=== PATIENT | female | born 1950 | race Caucasian/White ===

== ENCOUNTER 2016-07-23 11:27 | Day surgery (SDC) | payer OTHER ==
[2016-07-20 14:59] VITALS: BMI 27.8
--- NOTE | 2016-07-22 15:10 | HP ---
DATE OF ADMISSION: 07/23/2016 Lynda Johnson is a 66-year-old lady seen with progressive left knee pain. After having treatment options discussed, she elected to proceed with left knee arthroscopy. Consent was obtained. Medical clearance was provided by Dr. Tanner. Past medical history is asthma, hypothyroidism, cardiovascular disease. Past surgical history is appendectomy, coronary artery bypass surgery, bowel resection surgery. DAILY MEDICATIONS: 1. Aspirin. 2. Nitrostat. 3. Synthroid. 4. Ventolin. Allergies are TALWIN, CONTRAST DYE, COMPAZINE, ATIVAN, CIPROFLOXACIN, ASPIRIN. SOCIAL HISTORY: Patient denies tobacco use. Physical evaluation of the left knee: Range of motion 0 to 90 degrees, tenderness along the lateral joint line. Positive lateral Deejay's. Ligaments stable. Hip rotation without pain. Distal neurovascular exam intact. Radiographs of the left knee revealed mild osteoarthritis involving the medial compartment. MRI of the left knee revealed lateral meniscal tear. IMPRESSION: Internal derangement of the left knee with lateral meniscal tear. PLAN: Arthroscopy left knee with partial meniscectomy and debridement.
[~2016-07-23 11:27] MED LIST: DEXAMETHASONE SOD PHOSPHATE 10 MG/ML 1 ML VIAL IV ONE; LACTATED RINGERS 1,000 ML IV SCH; LIDOCAINE 1% 20 ML VIAL (10MG/ML) FOR IV START INTRADERMA PRN; MIDAZOLAM 2 MG/2 ML VIAL IV PRN; ONDANSETRON 4 MG/2 ML VIAL IVP ONE; SCOPOLAMINE 1.5MG/72HR PATCH TRANSDERM ONE; ceFAZolin 1,000 MG in DEXTROSE/WATER 1 50ML.BAG IVPB ONE
[2016-07-23 12:09] VITALS: RESP 16
[2016-07-23] MEDS ORDERED: LACTATED RINGERS 1,000 ML IV ONE ×2 (12:11→17:21)
[2016-07-23] MEDS ORDERED: LIDOCAINE 1% 20 ML VIAL (10MG/ML) FOR IV START SQ ONE (12:12)
[2016-07-23] MEDS ORDERED: MIDAZOLAM 2 MG/2 ML VIAL ONE (13:23)
[2016-07-23] MEDS ORDERED: SUCCINYLCHOLINE CHLORIDE 100 MG/5 ML SYR IV ONE (13:23)
[2016-07-23] MEDS ORDERED: fentaNYL (PF) 50 MCG/ML 2 ML AMP ONE (13:23)
[2016-07-23] MEDS ORDERED: PROPOFOL 10 MG/ML 20 ML VIAL IV ONE (13:23)
[2016-07-23] MEDS ORDERED: KETOROLAC 30 MG/ML 1 ML VIAL ONE (13:23)
[2016-07-23] MEDS ORDERED: LIDOCAINE 1% INJ 10MG/ML (20 ML MDV) ONE (13:23)
[2016-07-23] MEDS ORDERED: BUPIVACAIN-EPI 0.25%-1:200,000 30 ML VIAL INTRAARTIC ONE ×2 (13:32→14:02)
--- NOTE | 2016-07-23 14:14 | P.OP ---
Date of Procedure: 07/23/16 Preoperative Diagnosis: Internal derangement left knee Postoperative Diagnosis: 1. Tear medial and lateral meniscus left knee 2. Grade 2 chondromalacia patella left knee 3. Reactive synovitis medial and suprapatellar compartments left knee Procedure(s) Performed: 1. Arthroscopic partial medial and lateral meniscectomy left knee 2. Arthroscopic chondroplasty patella left knee 3. Arthroscopic partial synovectomy medial and suprapatellar compartments left knee Anesthesia: LISAA, local Surgeon: Tano Palacio Estimated Blood Loss (ml): 10 Pathology: none sent Condition: stable Disposition: PACU Indications for Procedure: 66-year-old patient seen with progressive left knee pain. After having treatment options discussed, she elected to proceed with left knee arthroscopy. Operative Findings: See description of procedure Description of Procedure: Patient was taken to the operative suite. Patient underwent a general anesthetic by the department of anesthesia. Patient was given preoperative antibiotics. The left lower extremity was placed in a well-padded arthroscopic leg levin. The left leg was prepped and draped in the normal sterile orthopedic fashion. A lateral parapatellar and suprapatellar incision was made. Trochars were inserted. Arthroscopy was initiated. Suprapatellar pouch revealed diffuse thick reactive synovitis. The patellofemoral joint appeared to articulate congruently. There was grade 2 chondromalacia with some osteochondral tears present. The scope was guided into the medial gutter. No loose bodies or plica were identified. The scope was then guided into the medial compartment. A medial parapatellar incision was made. Trocar inserted followed by probe. There was a radial tear posterior horn medial meniscus. There were grade 1 chondromalacia changes the medial compartment with no osteochondral tears. There was some synovitis anteriorly. A partial medial meniscectomy was performed down to stable tissue. I performed a partial synovectomy. The residual meniscus was probed and found to be stable. Scope and probe were then guided into the intercondylar notch. Cruciates were identified, probed and found to be stable. The scope and probe were then guided into lateral compartment. There was a radial tear posterior horn lateral meniscus. No reactive synovitis or loose bodies. A partial lateral meniscectomy performed on a stable tissue. The residual meniscus was probed and found to be stable. The scope was in guided back into the suprapatellar compartment. A motorized shaver was introduced into the suprapatellar compartment. I debrided some piecemeal fragments of meniscus. I performed a chondroplasty of the patella. I performed a partial synovectomy. Shaver was removed. I took one more look around the entire knee, no residual debris. Instruments were now removed from the joint. The joint was infiltrated with .25 % Marcaine. Steri-Strips were applied to the portal sites. Sterile dressings were applied. The patient was placed into a TIFFANIE hose. No tourniquet was utilized. The patient was awakened, transferred to a bed and taken to recovery stable satisfactory condition.
[2016-07-23 14:20] VITALS: TEMP 96.9
[2016-07-23] MEDS: HYDROmorphone 1 MG/ML 1 ML SYRINGE IVP PRN ×4 (14:31→14:49)
[2016-07-23] MEDS ORDERED: ONDANSETRON 4 MG/2 ML VIAL IVP ONE (17:19)
[2016-07-23 18:02] VITALS: BP 157/77; PULSE 88
[2016-07-23 18:48] LABS: Glucose,Whole Blood 119 mg/dL (75-99)
== END 2016-07-23 19:10 | disposition home or self-care (01) ==
LOC: OR 11:27
PROVIDERS: ATTEND Orthopaedic Surgery
DX: S83.282A Other tear of lateral meniscus, current injury, left knee, initial encounter (principal); S83.242A Other tear of medial meniscus, current injury, left knee, initial encounter; X58.XXXA Exposure to other specified factors, initial encounter; M22.42 Chondromalacia patellae, left knee; M65.862 Other synovitis and tenosynovitis, left lower leg; J45.909 Unspecified asthma, uncomplicated; E03.9 Hypothyroidism, unspecified; I25.10 Atherosclerotic heart disease of native coronary artery without angina pectoris; Z95.1 Presence of aortocoronary bypass graft; Z95.5 Presence of coronary angioplasty implant and graft; E78.5 Hyperlipidemia, unspecified; Z79.82 Long term (current) use of aspirin; Z79.899 Other long term (current) drug therapy; Z88.5 Allergy status to narcotic agent; Z88.8 Allergy status to other drugs, medicaments and biological substances; Z88.1 Allergy status to other antibiotic agents; Z91.041 Radiographic dye allergy status
CPT/HCPCS: 29880; J2250; J1100; J2405; J2001; J3010; J1885; J1170; J0690; J0330; J2704

== ENCOUNTER → 2016-09-01 | Outpatient (CLI) | payer OTHER ==
--- NOTE | 2016-09-01 15:04 | BD ---
EXAMINATION TYPE: MG DEXA axial skeleton. DATE OF EXAM: 09/01/2016 1:31 PM COMPARISON: NONE CLINICAL HISTORY: osteoporosis Height: 5'2 1/2 Weight: 157 FRAX RISK QUESTIONS: Alcohol (3 or more units per day): no Family History (Parent hip fracture): no Glucocorticoids (More than 3mos): no (Ex: prednisone, prednisolone, methylprednisolone, dexamethasone, and hydrocortisone). History of Fracture in Adulthood: yes Secondary Osteoporosis: 1. Type 1 Diabetes: no 2. Hyperthyroidism: no 3. Menopause before 45: no 4. Malnutrition: no 5. Chronic liver disease: no Rheumatoid Arthritis: no Current Tobacco Use: no RISK FACTORS HISTORY OF: Other Fractures since Age 52: When: age 59 Postmenopausal woman: Take estrogen and/or progesterone medications: How lon months MEDICATIONS: Thyroid Medications: Which medication: Synthroid How Lon years Additional Medications: aspirin, vitamin D , anti depressant Additional History: triple bypass 2000 EXAM MEASUREMENTS: Bone mineral densitometry was performed using the [employer] System. Bone mineral density as measured about the Lumbar spine is: ----- L1-L4(G/cm2): 0.963 T Score Values are as follows: ----- L2: -2.5 ----- L3: -2.3 ----- L4: -0.7 ----- L1-L4:-1.8 Bone mineral density about the R hip (g/cm2): 0.705 Bone mineral density about the L hip (g/cm2): 0.717 T Score values are as follows: -----R Neck: -2.4 -----L Neck: -2.3 -----R Intertrochanter: -1.8 -----L Intertrochanter: -1.7 IMPRESSION: Osteopenia (T Score between -2.5 and -1 as noted by T score value: L1-L4, Wiley Hips There is slightly increased risk of fracture and the patient may be considered for treatment. Re-Screen 1-2 years. NOTE: T-SCORE=SD OF THE YOUNG ADULT MEAN.
== END | disposition home or self-care (01) ==
LOC: RADBDWWP 12:47
PROVIDERS: ATTEND Family Medicine
DX: M85.852 Other specified disorders of bone density and structure, left thigh (principal); M85.851 Other specified disorders of bone density and structure, right thigh; M85.88 Other specified disorders of bone density and structure, other site
CPT/HCPCS: 77080

== ENCOUNTER → 2016-09-01 | Outpatient (CLI) | payer OTHER ==
--- NOTE | 2016-09-02 10:18 | MM ---
Reason for exam: screening (asymptomatic). Last mammogram was performed 2 years and 3 months ago. History: Patient is postmenopausal. Benign lumpectomy of the left breast, 1999. Physical Findings: A clinical breast exam by your physician is recommended on an annual basis and results should be correlated with mammographic findings. MG 3D Screening Mammo W/Cad Bilateral CC and MLO view(s) were taken. Prior study comparison: June 12, 2014, mammogram. The breast tissue is heterogeneously dense. This may lower the sensitivity of mammography. Finding: There are typically benign vascular, round calcifications in both breasts. There is no discrete abnormality. ASSESSMENT: Benign, BI-RAD 2 RECOMMENDATION: Routine screening mammogram of both breasts in 1 year.
== END | disposition home or self-care (01) ==
LOC: RADMAMWWP 12:51
PROVIDERS: ATTEND Obstetrics & Gynecology
DX: Z12.31 Encounter for screening mammogram for malignant neoplasm of breast (principal)
CPT/HCPCS: 77063; G0202

== ENCOUNTER → 2017-03-17 | Outpatient (CLI) | payer OTHER ==
[2017-03-17 19:15] LABS: Basophils % (A) 0 %; CH 29.1; CHCM 33.9; Eosinophils % (A) 0 %; HCT 46.2 % (34.0-46.0); HDW 2.51; HGB 15.7 gm/dL (11.4-16.0); Luc # (Auto) 0.14; Luc % (Auto) 1; Lymphocytes % (A) 10 %; MCH 29.3 pg (25.0-35.0); MCHC 33.9 g/dL (31.0-37.0); MCV 86.3 fL (80.0-100.0); Mean Platelet Volume 8.4; Monocytes # (A) 0.4 k/uL (0-1.0); Monocytes % (A) 4 %; Neutrophils # (A) 8.4 k/uL (1.3-7.7); Neutrophils % (A) 85 %; RBC 5.36 m/uL (3.80-5.40); RDW 12.2 % (11.5-15.5); WBC (Perox) 9.41
[2017-03-17 19:21] LABS: ALT 35 U/L (9-52); AST 22 U/L (14-36); Alkaline Phosphatase 96 U/L (38-126); Anion Gap 11 mmol/L; Blood Urea Nitrogen 12 mg/dL (7-17); Calcium 9.8 mg/dL (8.4-10.2); Carbon Dioxide 25 mmol/L (22-30); Chloride 105 mmol/L (98-107); Glucose 100 mg/dL (74-99); HDL Cholesterol 52 mg/dL (40-60); Non-African American GFR(MDRD) >60 (>60 ml/min/1.73 sqM); Potassium 4.7 mmol/L (3.5-5.1); Sodium 141 mmol/L (137-145); Total Protein 7.5 g/dL (6.3-8.2)
[2017-03-17 19:30] LABS: Cholesterol 429 mg/dL (<200)
== END ==
LOC: MMGSC 14:57
PROVIDERS: ATTEND Family Medicine
DX: E78.5 Hyperlipidemia, unspecified (principal); N39.0 Urinary tract infection, site not specified; E03.9 Hypothyroidism, unspecified
CPT/HCPCS: 36415; 80053; 80061; 84439; 84443; 85025; 87086

== ENCOUNTER 2018-01-01 15:16 | Emergency (ER) | payer OTHER ==
[2018-01-01 15:23] VITALS: RESP 16; TEMP 98.2
[2018-01-01] MEDS ORDERED: NITROGLYCERIN OINT 1 INCH/GM PACKET TOPICAL STA (16:25)
[2018-01-01] MEDS ORDERED: HEPARIN SODIUM,PORCINE 5,000 UNIT/ML 1 ML VIAL IV STA (16:25)
--- NOTE | 2018-01-01 16:28 | ED ---
General Adult HPI - General Chief complaint: Chest Pain Stated complaint: Chest Pain/Bypass Hx Time Seen by Provider: 01/01/18 16:12 Source: patient, family, RN notes reviewed, old records reviewed Mode of arrival: wheelchair Limitations: no limitations - History of Present Illness Initial comments: 67-year-old female with history of familial hypercholesterolemia and coronary artery disease status post bypass approximately 15 years ago presenting with chest pain and right arm pain. Pain is similar to her previous chest pain. She does have pain at rest and it is significantly worsened with exertion. Pain is associated with some nausea and belching. No diaphoresis. Patient is unable to tolerate statins and is currently not on any cholesterol medication. No cough or fever. No abdominal pain. No melena or rectal bleeding. - Related Data Home Medications Medication Instructions Recorded Confirmed Albuterol Inhaler [Ventolin Hfa 1 - 2 puff INHALATION RT-Q6H PRN 07/20/16 Inhaler] Biest 1 applic TOPICAL HS 07/20/16 01/01/18 Cholecalciferol [Vitamin D3] 2,000 unit PO DAILY 07/20/16 01/01/18 Curcumin 30 mg PO DAILY 07/20/16 01/01/18 Levothyroxine Sodium [Synthroid] 112 mcg PO Q72H 07/20/16 01/01/18 Levothyroxine Sodium [Synthroid] 125 mcg PO Q72H 07/20/16 01/01/18 Liothyronine Capsule 11.25 mcg PO Q72H 07/20/16 01/01/18 Multivitamins, Thera [Multivitamin] 1 tab PO DAILY 07/20/16 01/01/18 Nitroglycerin Sl Tabs [Nitrostat] 0.4 mg SUBLINGUAL Q5M PRN 07/20/16 01/01/18 fluvoxaMINE MALEATE [Luvox] 25 mg PO QAM 07/20/16 01/01/18 Allergies Allergy/AdvReac Type Severity Reaction Status Date / Time coffee (Coffea arabica) Allergy Severe Vomiting Verified 01/01/18 16:28 pentazocine [From Talwin] Allergy Severe Rapid Verified 01/01/18 16:28 Heart Rate Lvbdsmy-Oaw-Aid Reductase Allergy Severe muscle pain Verified 01/01/18 16:28 Inhibitor adhesive tape Allergy blisters Verified 06/23/18 16:28 aspirin Allergy induces Verified 01/01/18 16:28 asthma ciprofloxacin [From Cipro] Allergy Vomiting Verified 01/01/18 16:28 clopidogrel [From Plavix] Allergy ulcers Verified 01/01/18 16:28 Iodinated Contrast- Oral and Allergy Rapid Verified 01/01/18 16:28 IV Dye Heart Rate [Iodinated Contrast Media - Oral and] lorazepam [From Ativan] Allergy extreme Verified 01/01/18 16:28 sedaton meclizine [From Antivert] Allergy Rapid Verified 01/01/18 16:28 Heart Rate prochlorperazine Allergy extremem Verified 01/01/18 16:28 [From Compazine] aggitation/spastic maxeran Allergy Rapid Uncoded 01/01/18 15:24 Heart Rate vaccines(thermasol) Allergy Rapid Uncoded 01/01/18 15:24 Heart Rate Review of Systems ROS Statement: Those systems with pertinent positive or pertinent negative responses have been documented in the HPI. ROS Other: All systems not noted in ROS Statement are negative. Past Medical History Past Medical History: Asthma, Coronary Artery Disease (CAD), Fibromyalgia, GERD/ Reflux, Myocardial Infarction (NM) History of Any Multi-Drug Resistant Organisms: None Reported Past Surgical History: Coronary Bypass/CABG, Orthopedic Surgery Past Psychological History: No Psychological Hx Reported Smoking Status: Never smoker Past Alcohol Use History: None Reported Past Drug Use History: None Reported General Exam Limitations: no limitations General appearance: alert, in no apparent distress Head exam: Present: atraumatic, normocephalic Eye exam: Present: normal appearance, PERRL, EOMI ENT exam: Present: normal exam Neck exam: Present: normal inspection. Absent: tenderness, meningismus Respiratory exam: Present: normal lung sounds bilaterally. Absent: respiratory distress, wheezes, rales Cardiovascular Exam: Present: regular rate, normal rhythm GI/Abdominal exam: Present: soft. Absent: distended, tenderness Extremities exam: Present: normal inspection, normal capillary refill. Absent: pedal edema Back exam: Present: normal inspection. Absent: full ROM, tenderness Neurological exam: Present: alert, oriented X3, CN II-XII intact. Absent: motor sensory deficit Psychiatric exam: Present: normal affect, normal mood Skin exam: Present: warm, dry, intact. Absent: cyanosis, diaphoretic Course Vital Signs 01/01/18 01/01/18 15:18 16:59 Temperature 98.2 F Pulse Rate 104 H 70 Respiratory 16 16 Rate Blood Pressure 122/73 163/94 O2 Sat by Pulse 100 100 Oximetry EKG Findings - EKG Comments: EKG Findings:: EKG: Normal sinus rhythm, patient has ST segment depression in V4 , V5, and V6, no ST segment elevation, rate of 92, GA interval 194, QRS duration 88, QTC 4:30 Medical Decision Making - Medical Decision Making 67-year-old female history of NM, familial hypercholesterolemia, and coronary artery past graft history presenting with typical chest pain. EKG shows some ST segment depression in the lateral precordial leads workup in the emergency department includes chest x-ray which is negative for any acute cardiopulmonary disease. She has a normal white blood cell count, stable hemoglobin. Normal electrolytes. Troponin is elevated at 0.033. Given the patient's previous cardiac history and typical pain she is started on heparin while in the emergency department. As well as nitroglycerin. On reevaluation she is chest pain-free. She will be transferred to [facility] in 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 Tanner. Accepting physician is Dr. Burroughs - Lab Data Result diagrams: 01/01/18 16:53 01/01/18 16:53 Lab Results 01/01/18 01/01/18 01/01/18 Range/Units 16:53 16:53 16:53 WBC 6.0 (3.8-10.6) k/uL RBC 4.92 (3.80-5.40) m/uL Hgb 14.8 (11.4-16.0) gm/dL Hct 42.9 (34.0-46.0) % MCV 87.1 (80.0-100.0) fL MCH 30.1 (25.0-35.0) pg MCHC 34.6 (31.0-37.0) g/dL RDW 12.6 (11.5-15.5) % Plt Count 167 (150-450) k/uL Neutrophils % 71 % Lymphocytes % 19 % Monocytes % 6 % Eosinophils % 1 % Basophils % 1 % Neutrophils # 4.2 (1.3-7.7) k/uL Lymphocytes # 1.2 (1.0-4.8) k/uL Monocytes # 0.3 (0-1.0) k/uL Eosinophils # 0.1 (0-0.7) k/uL Basophils # 0.0 (0-0.2) k/uL PT (9.0-12.0) sec INR (<1.2) APTT (22.0-30.0) sec Sodium 142 (137-145) mmol/L Potassium 4.3 (3.5-5.1) mmol/L Chloride 105 (98-107) mmol/L Carbon Dioxide 26 (22-30) mmol/L Anion Gap 11 mmol/L BUN 16 (7-17) mg/dL Creatinine 0.72 (0.52-1.04) mg/dL Est GFR (CKD-EPI)AfAm >90 (>60 ml/min/1.73 sqM) Est GFR (CKD-EPI)NonAf 89 (>60 ml/min/1.73 sqM) Glucose 102 H (74-99) mg/dL Calcium 9.3 (8.4-10.2) mg/dL Magnesium 1.8 (1.6-2.3) mg/dL Total Bilirubin 1.0 (0.2-1.3) mg/dL AST 20 (14-36) U/L ALT 25 (9-52) U/L Alkaline Phosphatase 71 (38-126) U/L Total Creatine Kinase 78 (30-135) U/L CK-MB (CK-2) 0.7 (0.0-2.4) ng/mL CK-MB (CK-2) Rel Index 0.9 Troponin I 0.033 (0.000-0.034) ng/mL NT-Pro-B Natriuret Pep pg/mL Total Protein 7.1 (6.3-8.2) g/dL Albumin 4.4 (3.5-5.0) g/dL 01/01/18 01/01/18 Range/Units 16:53 16:53 WBC (3.8-10.6) k/uL RBC (3.80-5.40) m/uL Hgb (11.4-16.0) gm/dL Hct (34.0-46.0) % MCV (80.0-100.0) fL MCH (25.0-35.0) pg MCHC (31.0-37.0) g/dL RDW (11.5-15.5) % Plt Count (150-450) k/uL Neutrophils % % Lymphocytes % % Monocytes % % Eosinophils % % Basophils % % Neutrophils # (1.3-7.7) k/uL Lymphocytes # (1.0-4.8) k/uL Monocytes # (0-1.0) k/uL Eosinophils # (0-0.7) k/uL Basophils # (0-0.2) k/uL PT 10.5 (9.0-12.0) sec INR 1.1 (<1.2) APTT 25.5 (22.0-30.0) sec Sodium (137-145) mmol/L Potassium (3.5-5.1) mmol/L Chloride (98-107) mmol/L Carbon Dioxide (22-30) mmol/L Anion Gap mmol/L BUN (7-17) mg/dL Creatinine (0.52-1.04) mg/dL Est GFR (CKD-EPI)AfAm (>60 ml/min/1.73 sqM) Est GFR (CKD-EPI)NonAf (>60 ml/min/1.73 sqM) Glucose (74-99) mg/dL Calcium (8.4-10.2) mg/dL Magnesium (1.6-2.3) mg/dL Total Bilirubin (0.2-1.3) mg/dL AST (14-36) U/L ALT (9-52) U/L Alkaline Phosphatase (38-126) U/L Total Creatine Kinase (30-135) U/L CK-MB (CK-2) (0.0-2.4) ng/mL CK-MB (CK-2) Rel Index Troponin I (0.000-0.034) ng/mL NT-Pro-B Natriuret Pep 77 pg/mL Total Protein (6.3-8.2) g/dL Albumin (3.5-5.0) g/dL Critical Care Time Critical Care Time: Yes Total Critical Care Time: 35 Disposition Clinical Impression: NSTEMI (non-ST elevated myocardial infarction) Disposition: OTHER INSTITUTION NOT DEFINED Condition: Stable Is patient prescribed a controlled substance at d/c from ED?: No Referrals: Anyi Corado MD [Primary Care Provider] - 1-2 days Time of Disposition: 18:32 - Out of Hospital Transfer - Req. Specs Out of Hospital Transfer - Requested Specifics: Other Emergency Center ( Transfer to [facility] in [facility])
[2018-01-01] MEDS ORDERED: HEPARIN SOD,PORK IN 0.45% NACL 25,000 UNIT in 0.45% NACL 1 500ML.BAG IV SCH (16:30)
[2018-01-01 17:18] LABS: Basophils % (A) 1 %; Eosinophils # (A) 0.1 k/uL (0-0.7); Eosinophils % (A) 1 %; HCT 42.9 % (34.0-46.0); HGB 14.8 gm/dL (11.4-16.0); Lymphocytes # (A) 1.2 k/uL (1.0-4.8); Lymphocytes % (A) 19 %; MCH 30.1 pg (25.0-35.0); MCHC 34.6 g/dL (31.0-37.0); MCV 87.1 fL (80.0-100.0); Mean Platelet Volume 7.5; Monocytes # (A) 0.3 k/uL (0-1.0); Monocytes % (A) 6 %; Neutrophils # (A) 4.2 k/uL (1.3-7.7); Neutrophils % (A) 71 %; Platelet Count 167 k/uL (150-450); RBC 4.92 m/uL (3.80-5.40); RDW 12.6 % (11.5-15.5)
[2018-01-01 17:29] LABS: ALT 25 U/L (9-52); AST 20 U/L (14-36); Albumin 4.4 g/dL (3.5-5.0); Alkaline Phosphatase 71 U/L (38-126); Anion Gap 11 mmol/L; Blood Urea Nitrogen 16 mg/dL (7-17); Calcium 9.3 mg/dL (8.4-10.2); Carbon Dioxide 26 mmol/L (22-30); Chloride 105 mmol/L (98-107); Glucose 102 mg/dL (74-99); Magnesium 1.8 mg/dL (1.6-2.3); Potassium 4.3 mmol/L (3.5-5.1); Sodium 142 mmol/L (137-145); Total Protein 7.1 g/dL (6.3-8.2)
[2018-01-01 17:30] LABS: INR 1.1 (<1.2); Partial Thromboplastin Time 25.5 sec (22.0-30.0); Prothrombin Time 10.5 sec (9.0-12.0)
[2018-01-01 17:39] LABS: Creatine Kinase MB 0.7 ng/mL (0.0-2.4); Troponin I 0.033 ng/mL (0.000-0.034)
--- NOTE | 2018-01-01 17:43 | XR ---
EXAMINATION TYPE: XR chest 2V DATE OF EXAM: 01/01/2018 COMPARISON: None HISTORY: 67-year-old female with chest pain TECHNIQUE: PA and lateral views FINDINGS: The heart is normal size. Median sternotomy wires with post-CABG loops in the mediastinum. These inte rstitial prominence has a chronic appearance. Mild right apical pleural parenchymal scarring. No cons olidation or pleural effusion. IMPRESSION: Chronic-appearing changes, possible bronchitis or asthma. Otherwise, no acute process seen.
[2018-01-01 18:44] VITALS: BP 157/80; PULSE 90
== END 2018-01-01 19:00 | disposition other institution (70) ==
LOC: EC 15:16
DX: I21.4 Non-ST elevation (NSTEMI) myocardial infarction (principal); J45.909 Unspecified asthma, uncomplicated; I25.10 Atherosclerotic heart disease of native coronary artery without angina pectoris; M79.7 Fibromyalgia; K21.9 Gastro-esophageal reflux disease without esophagitis; Z95.1 Presence of aortocoronary bypass graft; Z98.890 Other specified postprocedural states; Z79.899 Other long term (current) drug therapy; Z88.1 Allergy status to other antibiotic agents; Z88.5 Allergy status to narcotic agent; Z88.6 Allergy status to analgesic agent; Z88.7 Allergy status to serum and vaccine; Z88.8 Allergy status to other drugs, medicaments and biological substances; Z91.018 Allergy to other foods; Z91.041 Radiographic dye allergy status; Z91.048 Other nonmedicinal substance allergy status
CPT/HCPCS: 99291; 96365; 96366; 96376; 36415; 93005; 83880; 80053; 82550; 82553; 83735; 84484; 85025; 85610; 85730; 71046; J1644 ×2; 99285

== ENCOUNTER 2018-03-26 03:00 | Observation (INO) | payer BC, OTHER ==
[2018-03-26] MEDS ORDERED: HEPARIN SODIUM,PORCINE 5,000 UNIT/ML 1 ML VIAL IV STA (03:16)
[2018-03-26] MEDS ORDERED: SODIUM CHLORIDE 0.9% 1,000 ML IV STA (03:16)
[2018-03-26] MEDS ORDERED: NITROGLYCERIN OINT 1 INCH/GM PACKET TOPICAL STA (03:16)
--- NOTE | 2018-03-26 03:21 | ED ---
Chest Pain HPI - General Chief Complaint: Chest Pain Stated Complaint: Chest pain Time Seen by Provider: 03/26/18 03:00 Source: patient Mode of arrival: ambulatory Limitations: no limitations - History of Present Illness Initial Comments: Lynda is a 68-year-old female with history significant for coronary artery disease status post a CABG 17 years ago as well as an incidental me in December resulting in cardiac catheterization and stenting. Patient presents the ED today via EMS for evaluation of lightheadedness, palpitations, chest pressure and diaphoresis. She reports that she has been in very good health recently, she's been making an appointment to get exercise and walk daily. She reports that she felt well throughout the day today. In the evening she was on the telephone with her son , she wasn't having a specifically stressful or emotionally provocative conversation but she suddenly felt very lightheaded and became diaphoretic. She decided to sit down and relax and her symptoms improved significantly. She then decided to go to bed for the night because she didn't want to provoke the symptoms again. She reports that she was sleeping comfortably, she woke up to use the restroom and when she got up to walk she felt very lightheaded became very diaphoretic she felt that her heart was racing and beating very hard and she felt significant pressure in her chest. She describes it as a heaviness in her chest which she rates as 10 out of 10 in severity, At that time she decided to take a nitro and it reports that the her in her chest decreased to a 3 out of 10. EMS gave her aspirin and route to the hospital and upon arrival she reports that her symptoms are down to a 3 out of 10 intensity and she is feeling much better. - Related Data Home Medications Medication Instructions Recorded Confirmed Albuterol Inhaler [Ventolin Hfa 1 - 2 puff INHALATION RT-Q6H PRN 07/20/16 Inhaler] Biest 1 applic TOPICAL HS 07/20/16 01/01/18 Cholecalciferol [Vitamin D3] 2,000 unit PO DAILY 07/20/16 01/01/18 Curcumin 30 mg PO DAILY 07/20/16 01/01/18 Levothyroxine Sodium [Synthroid] 112 mcg PO Q72H 07/20/16 01/01/18 Levothyroxine Sodium [Synthroid] 125 mcg PO Q72H 07/20/16 01/01/18 Liothyronine Capsule 11.25 mcg PO Q72H 07/20/16 01/01/18 Multivitamins, Thera [Multivitamin] 1 tab PO DAILY 07/20/16 01/01/18 Nitroglycerin Sl Tabs [Nitrostat] 0.4 mg SUBLINGUAL Q5M PRN 07/20/16 01/01/18 fluvoxaMINE MALEATE [Luvox] 25 mg PO QAM 07/20/16 01/01/18 Allergies Allergy/AdvReac Type Severity Reaction Status Date / Time coffee (Coffea arabica) Allergy Severe Vomiting Verified 01/01/18 16:28 pentazocine [From Talwin] Allergy Severe Rapid Verified 01/01/18 16:28 Heart Rate Parmllz-Uwn-Mgd Reductase Allergy Severe muscle pain Verified 01/01/18 16:28 Inhibitor adhesive tape Allergy blisters Verified 01/01/18 16:28 aspirin Allergy induces Verified 01/01/18 16:28 asthma ciprofloxacin [From Cipro] Allergy Vomiting Verified 01/01/18 16:28 clopidogrel [From Plavix] Allergy ulcers Verified 01/01/18 16:28 Iodinated Contrast- Oral and Allergy Rapid Verified 01/01/18 16:28 IV Dye Heart Rate [Iodinated Contrast Media - Oral and] lorazepam [From Ativan] Allergy extreme Verified 01/01/18 16:28 sedaton meclizine [From Antivert] Allergy Rapid Verified 01/01/18 16:28 Heart Rate prochlorperazine Allergy extremem Verified 01/01/18 16:28 [From Compazine] aggitation/spastic maxeran Allergy Rapid Uncoded 01/01/18 15:24 Heart Rate vaccines(thermasol) Allergy Rapid Uncoded 01/01/18 15:24 Heart Rate Review of Systems ROS Statement: Those systems with pertinent positive or pertinent negative responses have been documented in the HPI. ROS Other: All systems not noted in ROS Statement are negative. EKG Findings - EKG Comments: EKG Findings:: EKG obtained at 3:06 AM, rate is 81, rhythm is sinus, there is a normal axis, there are normal intervals, FL is 164, QRS is 78, QTC is 487, no acute ST elevations or depressions, when compared to EKG obtained on January 01 ST depressions that were present in leads V3 and V4 are less pronounced there is no significant change in morphology of the EKG. Past Medical History Past Medical History: Asthma, Coronary Artery Disease (CAD), Fibromyalgia, GERD/ Reflux, Myocardial Infarction ([place]) History of Any Multi-Drug Resistant Organisms: None Reported Past Surgical History: Coronary Bypass/CABG, Heart Catheterization With Stent, Orthopedic Surgery Past Psychological History: No Psychological Hx Reported Smoking Status: Never smoker Past Alcohol Use History: None Reported Past Drug Use History: None Reported General Exam - General Exam Comments Initial Comments: GENERAL: Patient is well-developed and well-nourished. Patient is nontoxic and well- hydrated and is in no distress. HENT: Normocephalic, Atraumatic. Neck is soft and supple. No significant lymphadenopathy is noted. Oropharynx is clear. Moist mucous membranes. Neck has full range of motion without eliciting any pain. No carotid bruits on auscultation EYES: The sclera were anicteric and conjunctiva were pink and moist. Extraocular movements were intact and pupils were equal round and reactive to light. Eyelids were unremarkable. PULMONARY: Unlabored respirations. Good breath sounds bilaterally. No audible rales rhonchi or wheezing was noted. CARDIOVASCULAR: There is a regular rate and rhythm without any murmurs gallops or rubs. Well healed mid sternal incision consistent with history of CABG ABDOMEN: Soft and nontender with normal bowel sounds. SKIN: Skin is clear with no lesions or rashes and otherwise unremarkable. NEUROLOGIC: Patient is alert and oriented x3. Cranial nerves II through XII are grossly intact. Motor and sensory are also intact. Normal speech, volume and content. Symmetrical smile. There is no reproducible nystagmus on exam, no evidence of vertiginous symptoms MUSCULOSKELETAL: Normal extremities with adequate strength and full range of motion. No lower extremity swelling or edema. No calf tenderness. LYMPHATICS: No significant lymphadenopathy is noted PSYCHIATRIC: Normal psychiatric evaluation. Limitations: no limitations Limitations: no limitations Course Vital Signs 03/26/18 03/26/18 03:04 04:11 Temperature 98.8 F Pulse Rate 95 67 Respiratory 16 16 Rate Blood Pressure 145/67 133/64 O2 Sat by Pulse 98 99 Oximetry Chest Pain MDM - MDM The patient was seen and evaluated, history was obtained from the patient and EMS Patient with a significant history of coronary artery disease, status post CABG and NSTEMI in December with stenting Patient presenting today with chest pressure relieved by nitro and 2 episodes of diaphoresis lightheadedness and palpitations which occurred without provocation. This history is concerning for unstable angina Patient repeatedly describes her symptoms as feeling dizzy however upon further questioning patient does state that she felt more lightheaded and feeling as though she needed to lay down. She denies having any symptoms of room spinning around her, any symptoms which are reproducible by turning her head. She has no physical exam findings concerning for nystagmus or evidence of vertigo. Her symptoms seem to be more lightheadedness associated with palpitations and diaphoresis. Workup was ordered Due to high suspicion of coronary syndrome) and nitro were ordered Patient was reevaluated and reports that since receiving the Nitropaste she's not had any further chest pressure. 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 This time patient feels comfortable to plan for staying here. She care was discussed with the [facility] physician group who accepts patient admission with a consult to cardiology. Admission orders and consults were placed. Disposition Clinical Impression: Chest pain Disposition: ADMITTED IP TO THIS [facility] Referrals: Anyi Corado MD [Primary Care Provider] - 1-2 days
[2018-03-26 03:25] LABS: Basophils # (A) 0.1 k/uL (0-0.2); Basophils % (A) 1 %; Eosinophils # (A) 0.1 k/uL (0-0.7); Eosinophils % (A) 2 %; HCT 43.8 % (34.0-46.0); HGB 14.4 gm/dL (11.4-16.0); Lymphocytes # (A) 1.8 k/uL (1.0-4.8); Lymphocytes % (A) 22 %; MCH 28.7 pg (25.0-35.0); MCHC 32.8 g/dL (31.0-37.0); MCV 87.5 fL (80.0-100.0); Mean Platelet Volume 7.9; Monocytes # (A) 0.3 k/uL (0-1.0); Monocytes % (A) 4 %; Neutrophils # (A) 5.7 k/uL (1.3-7.7); Neutrophils % (A) 70 %; Platelet Count 182 k/uL (150-450); RBC 5.01 m/uL (3.80-5.40); RDW 12.3 % (11.5-15.5); WBC 8.1 k/uL (3.8-10.6)
--- NOTE | 2018-03-26 03:32 | XR ---
EXAMINATION TYPE: XR chest 2V DATE OF EXAM: 03/26/2018 COMPARISON: 01/01/2018 HISTORY: Chest pain TECHNIQUE: Frontal and lateral views of the chest are obtained. FINDINGS: There is no heart failure nor confluent pneumonic infiltrate. There are sternal wires. The re are chest leads. Costophrenic angles are clear. IMPRESSION: No active cardiopulmonary disease. No change.
[2018-03-26 03:34] LABS: Partial Thromboplastin Time 25.9 sec (22.0-30.0); Prothrombin Time 10.2 sec (9.0-12.0)
[2018-03-26 03:35] LABS: ALT 21 U/L (9-52); AST 20 U/L (14-36); Albumin 4.2 g/dL (3.5-5.0); Alkaline Phosphatase 63 U/L (38-126); Anion Gap 12 mmol/L; Blood Urea Nitrogen 16 mg/dL (7-17); Calcium 9.2 mg/dL (8.4-10.2); Carbon Dioxide 24 mmol/L (22-30); Chloride 105 mmol/L (98-107); Glucose 108 mg/dL (74-99); Magnesium 1.7 mg/dL (1.6-2.3); Potassium 3.9 mmol/L (3.5-5.1); Sodium 141 mmol/L (137-145); Total Bilirubin 0.5 mg/dL (0.2-1.3); Total Protein 6.9 g/dL (6.3-8.2)
[2018-03-26 03:46] LABS: Creatine Kinase 50 U/L (30-135)
[2018-03-26] MEDS ORDERED: HEPARIN SODIUM,PORCINE 5,000 UNIT/ML 1 ML VIAL IV PRN (03:54)
[2018-03-26 03:58] LABS: Creatine Kinase MB 0.7 ng/mL (0.0-2.4); Troponin I <0.012 ng/mL (0.000-0.034)
[2018-03-26] MEDS ORDERED: HEPARIN SOD,PORK IN 0.45% NACL 25,000 UNIT in 0.45% NACL 1 500ML.BAG IV SCH (04:00)
[2018-03-26] MEDS ORDERED: NITROGLYCERIN SL TABS 0.4 MG TAB SUBLINGUAL PRN (04:43)
[2018-03-26] MEDS ORDERED: ACETAMINOPHEN TAB 325 MG TAB PO PRN (05:36)
[2018-03-26] MEDS ORDERED: HYDROcodone/APAP 5-325MG 1 EACH TAB PO PRN (05:36)
[2018-03-26] MEDS ORDERED: MAG HYDROX/AL HYDROX/SIMETH 30 ML CUP PO PRN (05:36)
[2018-03-26] MEDS ORDERED: NALOXONE 0.4 MG/ML 1 ML VIAL IV PRN (05:36)
[2018-03-26] MEDS ORDERED: ALBUTEROL NEBULIZED 2.5 MG/3 ML INHALATION PRN (05:58)
--- NOTE | 2018-03-26 06:21 | P.HPIM ---
History of Present Illness H&P Date: 03/26/18 Chief Complaint: Chest pain 68-year-old female with PMH of CAD s/p CABG 17 years ago and stent placement in December 2017, hypothyroidism, asthma, fibromyalgia presents the ED for sudden onset chest pain. Patient reports speaking to her son over the phone, started to feel dizzy. Her dizziness was described as "room spinning sensation". This dizziness was associated with cold sweats and nausea. Patient reports laying down for 20 minutes and states her symptoms got better. Patient states that she went to sleep after that, and woke up experiencing similar symptoms of vertigo, cold sweats and nausea. Patient also experienced chest pressure associated with palpitations. This prompted her to call EMS. She was given nitro sublingually and aspirin by EMS, which improved her pain. Of note, patient has been feeling relatively well since her stent placement. Patient reports walking 6-7000 steps a day. She is able to walk half a mile before feeling short of breath. She is able to climb flights of stairs. She denies any PND. She denies any lower extremity edema. She denies any exertional chest pain. She denies any headache, vomiting, fever, cough, shortness of breath, changes in urination or bowel habits. No changes in appetite or weight. No numbness, weakness or tingling. Patient reports following her software qa system specialist at [facility]. Patient states that she is not on dual antiplatelet agent. States that she is ALLERGIC to aspirin, only takes Plavix. Patient reports not taking beta frnaklin or NARA inhibitor due to hypotension. She has a history of familial hypercholesterolemia. She is ALLERGIC to statins. She is currently being evaluated by an mathematical physicist for Praluent. In the ED, CBC and CMP was unremarkable except for glucose of 108. Initial troponin was less than 0.012. EKG showed sinus rhythm with frequent PVCs and nonspecific ST and T-wave abnormalities, improved from previous EKG. She was started on a heparin drip. Patient is admitted from stable angina, pending cardiology evaluation. Her PCP is Dr. Corado. Review of Systems All systems: negative Past Medical History Past Medical History: Asthma, Coronary Artery Disease (CAD), Fibromyalgia, GERD/ Reflux, Myocardial Infarction ([place]) History of Any Multi-Drug Resistant Organisms: None Reported Past Surgical History: Coronary Bypass/CABG, Heart Catheterization With Stent, Orthopedic Surgery Past Psychological History: No Psychological Hx Reported Smoking Status: Never smoker Past Alcohol Use History: None Reported Past Drug Use History: None Reported Medications and Allergies Home Medications Medication Instructions Recorded Confirmed Type Albuterol Inhaler [Ventolin Hfa 1 - 2 puff INHALATION RT-Q6H PRN 07/20/16 History Inhaler] Biest 1 applic TOPICAL HS 07/20/16 01/01/18 History Cholecalciferol [Vitamin D3] 2,000 unit PO DAILY 07/20/16 01/01/18 History Levothyroxine Sodium [Synthroid] 112 mcg PO Q72H 07/20/16 01/01/18 History Levothyroxine Sodium [Synthroid] 125 mcg PO Q72H 07/20/16 01/01/18 History Liothyronine Capsule 11.25 mcg PO Q72H 07/20/16 01/01/18 History Multivitamins, Thera [Multivitamin] 1 tab PO DAILY 07/20/16 01/01/18 History Nitroglycerin Sl Tabs [Nitrostat] 0.4 mg SUBLINGUAL Q5M PRN 07/20/16 01/01/18 History fluvoxaMINE MALEATE [Luvox] 25 mg PO QAM 07/20/16 01/01/18 History Clopidogrel [Plavix] 75 mg PO DAILY 03/26/18 03/26/18 History Allergies Allergy/AdvReac Type Severity Reaction Status Date / Time coffee (Coffea arabica) Allergy Severe Vomiting Verified 01/01/18 16:28 pentazocine [From Talwin] Allergy Severe Rapid Verified 01/01/18 16:28 Heart Rate adhesive tape Allergy blisters Verified 01/01/18 16:28 aspirin Allergy induces Verified 01/01/18 16:28 asthma cider vinegar Allergy Anaphylaxis Verified 03/26/18 06:02 ciprofloxacin [From Cipro] Allergy Vomiting Verified 01/01/18 16:28 Iodinated Contrast- Oral and Allergy Rapid Verified 01/01/18 16:28 IV Dye Heart Rate [Iodinated Contrast Media - Oral and] lorazepam [From Ativan] Allergy extreme Verified 01/01/18 16:28 sedaton meclizine [From Antivert] Allergy Rapid Verified 01/01/18 16:28 Heart Rate prochlorperazine Allergy extremem Verified 01/01/18 16:28 [From Compazine] aggitation/spastic maxeran Allergy Rapid Uncoded 01/01/18 15:24 Heart Rate vaccines(thermasol) Allergy Rapid Uncoded 01/01/18 15:24 Heart Rate Physical Exam Vitals: Vital Signs Temp Pulse Resp BP Pulse Ox 03/26/18 05:05 64 16 123/59 96 03/26/18 04:11 67 16 133/64 99 03/26/18 03:04 98.8 F 95 16 145/67 98 Intake and Output 03/25/18 03/25/18 03/26/18 14:59 22:59 06:59 Other: Weight 64.864 kg General: [non toxic], [no distress], [appears at stated age] Derm: [warm], [dry] Head: [atraumatic], [normocephalic], [symmetric] Eyes: [EOMI], [no lid lag], [anicteric sclera] Mouth: [no lip lesion], [mucus membranes moist] Cardiovascular: [S1S2 reg], [systolic murmur], [positive posterior tibial pulse bilateral], [sternal scar], [no JVD] Lungs: [CTA bilateral], [no rhonchi, no rales] , [no accessory muscle use] Abdominal: [soft], [ nontender to palpation], [no guarding], [no appreciable organomegaly] Ext: [no gross muscle atrophy], [no edema], [no contractures] Neuro: [ CN II-XI grossly intact], [no focal neuro deficits] Psych: [Alert], [oriented], [appropriate affect] Results CBC & Chem 7: 03/26/18 03:00 03/26/18 03:00 Labs: Abnormal Lab Results - Last 24 Hours (Table) 03/26/18 Range/Units 03:00 Glucose 108 H (74-99) mg/dL Thrombosis Risk Factor Assmnt - Choose All That Apply Any of the Below Risk Factors Present?: Yes Each Factor Represents 1 point: Obesity (BMI >25) Other Risk Factors: Yes Each Risk Factor Represents 2 Points: Age 61-74 years Thrombosis Risk Factor Assessment Total Risk Factor Score: 3 Thrombosis Risk Factor Assessment Level: Moderate Risk Assessment and Plan Assessment: Assessment and Plan 1. Chest Pain: Symptoms concerning for unstable angina given PMH. Patient has not been on DAPT since her stent placement in December 2017. Not on BB or ACEi due to hypotension. Patient has a history of familial hypercholesterolemia, allergic to statins. Troponin < 0.012 x 1, EKG shows SR with frequent PVCs and ST and T wave abnormalities (improved from previous admission). CXR negative. Pain management with Tylenol, [place] and Nitrostat. Continue Heparin drip. Telemetry monitoring. Trend 2 sets of Trops/EKG to r/o ACS. FU Cardiology for further intervention 2. Asthma: Stable. Albuterol neb QID PRN for SOB or wheezing. 3. Hypothyroidism: Stable. Continue Liothyronine 11.25 mcg, Synthroid 112 mcg and Synthroid 125 mcg alternating days. FU TSH 4. HLDA: Partial ileal bypass in 2007, revered in 2015. Allergic to statins. Lipid panel shows T. Chol 429, LDL 351 in 03/2017. FU Lipid panel, A1c 5. DVT/GI Prophylaxis: Heparin drip. Pepcid 20 mg PO BID. We'll consider obtaining records from [facility] ([place]) in the AM. Cardiology consulted for further intervention.
[2018-03-26] MEDS ORDERED: LIOTHYRONINE SODIUM 5 MCG TAB PO SCH (06:30)
[2018-03-26] MEDS ORDERED: FAMOTIDINE 20 MG TAB PO SCH (09:00)
[2018-03-26 09:35] LABS: Creatine Kinase 43 U/L (30-135)
[2018-03-26 09:48] LABS: Creatine Kinase MB 0.7 ng/mL (0.0-2.4); Troponin I <0.012 ng/mL (0.000-0.034)
[2018-03-26 09:49] VITALS: RESP 16
--- NOTE | 2018-03-26 12:26 | P.CRDCN ---
History of Present Illness History of present illness: This is Dr. Rubio dictating a consult on this patient The patient was interviewed and examined by me IMPRESSION / ASSESSMENT: No evidence for acute myocardial infarction Possible vasovagal episode No sustained arrhythmias documented here in the hospital but frequent PVCs have been documented. It is possible that she may have had an arrhythmia Known CAD status post coronary artery bypass grafting status post coronary stenting intolerant of aspirin, ALLERGIC to statins and multiple other medications and awaiting a decision of PC SK 9 inhibitors after ALLERGY testing PLAN: Stop heparin after the third cardiac enzyme. May go home from a cardiac standpoint if 3 cardiac enzymes are normal Patient to see her primary community facilitator at [facility] Dr. Tanner early next week Outpatient event monitoring to look for any tachyarrhythmias Consider tilt table testing HPI Patient admitted with lightheadedness diaphoresis palpitations and dizziness. She was having a conversation on the phone which was somewhat stressful. Her heart started beat fast she was lightheaded. Later she started experiencing chest discomfort and got worried and came to the hospital since she has known coronary artery disease status post coronary artery bypass grafting and recent stent Here cardiac enzymes are normal D dimer is normal PVCs are noted from the LV base ROS: No fever chills or rigors, no cough, phlegm or expectoration, no nausea, vomiting or diarrhea, no hematuria, dysuria, no musculoskeletal complaints, no strokes or seizures, no skin lesions. EXAMINATION Afebrile 97.7F pulse rate in the 60s blood pressure 130/59 mmHg Breath sounds are clear no rhonchi no crackles Heart sounds are normal normal S1 normal S2 Extended is warm no edema Abdomen soft REVIEW OF LABS, ECG 14.4 hemoglobin D-dimer is normal Electrolytes normal Normal cardiac enzymes 2 Twelve-lead ECG shows sinus rhythm with 0.[address] depression inferolaterally with PVCs from the LV base His PVCs have been noted in the past ECG is also Past Medical History Past Medical History: Asthma, Coronary Artery Disease (CAD), Fibromyalgia, GERD/ Reflux, Myocardial Infarction ([place]) Last Myocardial Infarction Date:: 12/2017 History of Any Multi-Drug Resistant Organisms: None Reported Past Surgical History: Coronary Bypass/CABG, Heart Catheterization With Stent, Orthopedic Surgery Additional Past Surgical History / Comment(s): III vessel CABG 2000, cath with 2 stents december 2017, left knee surgery, partial bypass of ileus with reversal Past Anesthesia/Blood Transfusion Reactions: No Reported Reaction Date of Last Stent Placement:: 12/2017 Past Psychological History: No Psychological Hx Reported Smoking Status: Never smoker Past Alcohol Use History: None Reported Past Drug Use History: None Reported - Past Family History Mother Family Medical History: Hyperlipidemia Father Family Medical History: Hypertension Additional Family Medical History / Comment(s): endocarditis Brother(s) Family Medical History: Coronary Artery Disease (CAD) Additional Family Medical History / Comment(s): ETOH Son(s) Family Medical History: Thyroid Disorder Medications and Allergies Home Medications Medication Instructions Recorded Confirmed Type Albuterol Inhaler [Ventolin Hfa 1 - 2 puff INHALATION RT-Q6H PRN 07/20/16 History Inhaler] Cholecalciferol [Vitamin D3] 2,000 unit PO DAILY 07/20/16 03/26/18 History Levothyroxine Sodium [Synthroid] 112 mcg PO Q72H 07/20/16 03/26/18 History Levothyroxine Sodium [Synthroid] 125 mcg PO Q72H 07/20/16 03/26/18 History Liothyronine Capsule 11.25 mcg PO Q72H 07/20/16 03/26/18 History Multivitamins, Thera [Multivitamin] 1 tab PO DAILY 07/20/16 03/26/18 History Nitroglycerin Sl Tabs [Nitrostat] 0.4 mg SUBLINGUAL Q5M PRN 07/20/16 03/26/18 History fluvoxaMINE MALEATE [Luvox] 25 mg PO QAM 07/20/16 03/26/18 History Aspirin/Acetaminophen/Caffeine 1 tab PO Q6H PRN 03/26/18 03/26/18 History [Excedrin Migraine Caplet] Clopidogrel [Plavix] 75 mg PO DAILY 03/26/18 03/26/18 History Ibuprofen [Advil] 200 mg PO Q8HR PRN 03/26/18 03/26/18 History Louann-3 Fatty Acids [Louann-3] 1,000 mg PO DAILY 03/26/18 03/26/18 History Pedi Multivit No.25/Folic Acid 1 tab PO DAILY 03/26/18 03/26/18 History [Flintstones Multivit Chew Tab] Allergies Allergy/AdvReac Type Severity Reaction Status Date / Time coffee (Coffea arabica) Allergy Severe Vomiting Verified 01/01/18 16:28 pentazocine [From Talwin] Allergy Severe Rapid Verified 01/01/18 16:28 Heart Rate adhesive tape Allergy blisters Verified 01/01/18 16:28 aspirin Allergy induces Verified 01/01/18 16:28 asthma cider vinegar Allergy Anaphylaxis Verified 03/26/18 06:02 ciprofloxacin [From Cipro] Allergy Vomiting Verified 01/01/18 16:28 Iodinated Contrast- Oral and Allergy Rapid Verified 01/01/18 16:28 IV Dye Heart Rate [Iodinated Contrast Media - Oral and] lorazepam [From Ativan] Allergy extreme Verified 01/01/18 16:28 sedaton meclizine [From Antivert] Allergy Rapid Verified 01/01/18 16:28 Heart Rate prochlorperazine Allergy extremem Verified 01/01/18 16:28 [From Compazine] aggitation/spastic maxeran Allergy Rapid Uncoded 01/01/18 15:24 Heart Rate vaccines(thermasol) Allergy Rapid Uncoded 01/01/18 15:24 Heart Rate Physical Exam Vitals: Vital Signs Temp Pulse Pulse Pulse Resp BP BP 03/26/18 12:00 97.7 F 62 16 113/59 03/26/18 11:24 03/26/18 08:00 98.2 F 65 16 109/54 03/26/18 06:36 18 03/26/18 06:35 97.8 F 60 18 109/52 03/26/18 05:05 64 16 123/59 03/26/18 04:11 67 16 133/64 03/26/18 03:04 98.8 F 95 16 145/67 Pulse Ox 03/26/18 12:00 98 03/26/18 11:24 97 03/26/18 08:00 97 03/26/18 06:36 03/26/18 06:35 97 03/26/18 05:05 96 03/26/18 04:11 99 03/26/18 03:04 98 Intake and Output 03/25/18 03/26/18 03/26/18 22:59 06:59 14:59 Other: Voiding Method Toilet Weight 64.864 kg Results 03/26/18 03:00 03/26/18 03:00 Cardiac Enzymes 03/26/18 03/26/18 03/26/18 Range/Units 03:00 03:00 08:58 AST 20 (14-36) U/L CK-MB (CK-2) 0.7 0.7 (0.0-2.4) ng/mL Troponin I <0.012 <0.012 (0.000-0.034) ng/mL Coagulation 03/26/18 03/26/18 Range/Units 03:00 08:58 PT 10.2 (9.0-12.0) sec APTT 25.9 107.0 H* (22.0-30.0) sec CBC 03/26/18 Range/Units 03:00 WBC 8.1 (3.8-10.6) k/uL RBC 5.01 (3.80-5.40) m/uL Hgb 14.4 (11.4-16.0) gm/dL Hct 43.8 (34.0-46.0) % Plt Count 182 (150-450) k/uL Comprehensive Metabolic Panel 03/26/18 Range/Units 03:00 Sodium 141 (137-145) mmol/L Potassium 3.9 (3.5-5.1) mmol/L Chloride 105 (98-107) mmol/L Carbon Dioxide 24 (22-30) mmol/L BUN 16 (7-17) mg/dL Creatinine 0.63 (0.52-1.04) mg/dL Glucose 108 H (74-99) mg/dL Calcium 9.2 (8.4-10.2) mg/dL AST 20 (14-36) U/L ALT 21 (9-52) U/L Alkaline Phosphatase 63 (38-126) U/L Total Protein 6.9 (6.3-8.2) g/dL Albumin 4.2 (3.5-5.0) g/dL Current Medications Generic Name Dose Route Start Last Admin Trade Name Freq PRN Reason Stop Dose Admin Acetaminophen 650 mg 03/26/18 05:36 Tylenol Tab PO Q6HR PRN Mild Pain or Fever > 100.5 Hydrocodone Bitart/Acetaminophen 1 each 03/26/18 05:36 [place] 5-325 PO Q4HR PRN Moderate Pain Al Hydroxide/Mg Hydroxide 15 ml 03/26/18 05:36 Maalox PO Q6HR PRN Indigestion Albuterol Sulfate 2.5 mg 03/26/18 05:58 Ventolin Nebulized INHALATION RT-QID PRN Shortness Of Breath Or Wheezing Famotidine 20 mg 03/26/18 09:00 Pepcid PO BID KASIA Fluvoxamine Maleate 25 mg 03/26/18 09:00 Luvox PO QAM [facility] Heparin Sodium (Porcine) 0 unit 03/26/18 03:54 Heparin IV PER PROTOCOL PRN Low PTT Protocol Levothyroxine Sodium 112 mcg 03/27/18 06:30 Synthroid PO Q72H [facility] Levothyroxine Sodium 125 mcg 03/28/18 06:30 Synthroid PO Q72H [facility] Liothyronine Sodium 11.25 mcg 03/26/18 06:30 Cytomel PO Q72H [facility] Naloxone HCl 0.2 mg 03/26/18 05:36 Narcan IV Q2M PRN Opioid Reversal Nitroglycerin 0.4 mg 03/26/18 04:43 Nitrostat SUBLINGUAL Q5M PRN Chest Pain Intake and Output 03/25/18 03/26/18 03/26/18 22:59 06:59 14:59 Other: Voiding Method Toilet Weight 64.864 kg 03/26/18 03:00 03/26/18 03:00
[2018-03-26 15:35] LABS: Creatine Kinase 39 U/L (30-135)
[2018-03-26 15:49] LABS: Creatine Kinase MB 0.6 ng/mL (0.0-2.4); Troponin I <0.012 ng/mL (0.000-0.034)
[2018-03-26 16:01] VITALS: BP 135/71; PULSE 70; TEMP 98.3
[2018-03-26 18:47] LABS: Hemoglobin A1C 5.2 % (4.0-6.0)
[2018-03-27] MEDS ORDERED: LEVOTHYROXINE 112 MCG TAB PO SCH (06:30)
--- NOTE | 2018-03-27 12:08 | P.PN ---
Progress Note - Text Progress Note Date: 03/26/18 patient was seen by cardiology Dr. Joanne hernandez there is no evidence of ACS suspect possible vasovagal episode or maybe possible arrhythmia, recommended that the patient can be discharged home safely after third negative set of troponins with plans to follow-up with her primary zipper ironer at [place] where she can possibly have outpatient event monitoring for look for any tachyarrhythmias or possible tilt table test ultimately determined by her primary zipper ironer
[2018-03-28] MEDS ORDERED: LEVOTHYROXINE 125 MCG TAB PO SCH (06:30)
== END 2018-03-26 16:36 | disposition home or self-care (01) ==
LOC: EC 03:00 → 3OBS 04:54
PROVIDERS: ADMIT Family Medicine; ATTEND Family Medicine
DX: R07.89 Other chest pain (principal); R61 Generalized hyperhidrosis; I49.3 Ventricular premature depolarization; I25.10 Atherosclerotic heart disease of native coronary artery without angina pectoris; M79.7 Fibromyalgia; K21.9 Gastro-esophageal reflux disease without esophagitis; E78.01 Familial hypercholesterolemia; E66.9 Obesity, unspecified; Z68.26 Body mass index [BMI] 26.0-26.9, adult; E03.9 Hypothyroidism, unspecified; J45.909 Unspecified asthma, uncomplicated; Z79.890 Hormone replacement therapy; Z79.02 Long term (current) use of antithrombotics/antiplatelets; Z79.899 Other long term (current) drug therapy; Z88.6 Allergy status to analgesic agent; Z88.1 Allergy status to other antibiotic agents; Z91.041 Radiographic dye allergy status; Z88.7 Allergy status to serum and vaccine; Z91.018 Allergy to other foods; Z91.048 Other nonmedicinal substance allergy status; Z88.8 Allergy status to other drugs, medicaments and biological substances; Z95.5 Presence of coronary angioplasty implant and graft; I25.2 Old myocardial infarction; Z95.1 Presence of aortocoronary bypass graft; Z82.49 Family history of ischemic heart disease and other diseases of the circulatory system; Z83.49 Family history of other endocrine, nutritional and metabolic diseases
CPT/HCPCS: 99285 ×2; 96365 ×2; 96376 ×2; 96361 ×2; 36415; 93005; 85379; 80053; 82550; 82553; 83735; 84484; 85025; 85610; 85730; 83036; 71046; G0378; J1644 ×2

== ENCOUNTER → 2018-08-25 | Outpatient (CLI) | payer BC | LOC: LABWHC1 10:27 | PROVIDERS: ATTEND Internal Medicine Endocrinology, Diabetes & Metabolism | DX: E03.8 Other specified hypothyroidism (principal) | CPT/HCPCS: 36415; 84443 ==

== ENCOUNTER → 2018-09-05 | Outpatient (CLI) | payer BC ==
[2018-09-05 15:17] LABS: Basophils # (A) 0.1 k/uL (0-0.2); Basophils % (A) 1 %; Eosinophils # (A) 0.1 k/uL (0-0.7); Eosinophils % (A) 2 %; HCT 43.2 % (34.0-46.0); HGB 14.4 gm/dL (11.4-16.0); Lymphocytes # (A) 1.5 k/uL (1.0-4.8); Lymphocytes % (A) 25 %; MCH 29.2 pg (25.0-35.0); MCHC 33.3 g/dL (31.0-37.0); MCV 87.8 fL (80.0-100.0); Mean Platelet Volume 8.1; Monocytes # (A) 0.3 k/uL (0-1.0); Monocytes % (A) 5 %; Neutrophils # (A) 3.9 k/uL (1.3-7.7); Neutrophils % (A) 65 %; Platelet Count 207 k/uL (150-450); RBC 4.92 m/uL (3.80-5.40); RDW 12.8 % (11.5-15.5)
[2018-09-05 15:22] LABS: Prothrombin Time 10.4 sec (9.0-12.0)
[2018-09-05 15:28] LABS: Potassium 4.4 mmol/L (3.5-5.1)
[2018-09-05 15:29] LABS: Anion Gap 8 mmol/L; Blood Urea Nitrogen 17 mg/dL (7-17); Calcium 9.2 mg/dL (8.4-10.2); Carbon Dioxide 28 mmol/L (22-30); Chloride 108 mmol/L (98-107); Glucose 84 mg/dL (74-99); Sodium 144 mmol/L (137-145)
== END | disposition home or self-care (01) ==
LOC: LABWHC1 13:56
PROVIDERS: ATTEND Internal Medicine
DX: Z01.812 Encounter for preprocedural laboratory examination (principal); I25.10 Atherosclerotic heart disease of native coronary artery without angina pectoris
CPT/HCPCS: 36415; 80048; 85025; 85610

== ENCOUNTER → 2018-09-19 | Outpatient (CLI) | payer BC ==
--- NOTE | 2018-09-19 13:05 | MM ---
Reason for exam: screening (asymptomatic). Last mammogram was performed 2 years and 1 month ago. History: Patient is postmenopausal. Benign lumpectomy of the left breast, 1999. Physical Findings: A clinical breast exam by your physician is recommended on an annual basis and results should be correlated with mammographic findings. MG 3D Screening Mammo W/Cad Bilateral CC and MLO view(s) were taken. Prior study comparison: September 01, 2016, bilateral MG 3d screening mammo w/cad. June 12, 2014, mammogram. The breast tissue is heterogeneously dense. This may lower the sensitivity of mammography. Stable benign calcifications. There is no discrete abnormality. No significant changes when compared with prior studies. ASSESSMENT: Benign, BI-RAD 2 RECOMMENDATION: Routine screening mammogram of both breasts in 1 year.
== END ==
LOC: RADMAMWWP 08:44
PROVIDERS: ATTEND Family Medicine
DX: Z12.31 Encounter for screening mammogram for malignant neoplasm of breast (principal)
CPT/HCPCS: 77063; 77067

== ENCOUNTER → 2018-10-13 | Outpatient (CLI) | payer BC | LOC: LABWHC1 12:38 | PROVIDERS: ATTEND Internal Medicine Endocrinology, Diabetes & Metabolism | DX: E03.8 Other specified hypothyroidism (principal) | CPT/HCPCS: 36415; 84443 ==

== ENCOUNTER → 2018-11-10 | Outpatient (CLI) | payer BC | LOC: LABWHC1 13:01 | PROVIDERS: ATTEND Internal Medicine Endocrinology, Diabetes & Metabolism | DX: E03.8 Other specified hypothyroidism (principal) | CPT/HCPCS: 36415; 84443 ==

== ENCOUNTER → 2019-03-22 | Outpatient (CLI) | payer BC | END | disposition home or self-care (01) | LOC: LABWHC1 08:38 | PROVIDERS: ATTEND Internal Medicine Endocrinology, Diabetes & Metabolism | DX: E03.8 Other specified hypothyroidism (principal) | CPT/HCPCS: 36415; 84443 ==

== ENCOUNTER → 2019-05-31 | Outpatient (CLI) | payer BC | END | disposition home or self-care (01) | LOC: LABWHC1 11:05 | PROVIDERS: ATTEND Internal Medicine Endocrinology, Diabetes & Metabolism | DX: E03.8 Other specified hypothyroidism (principal) | CPT/HCPCS: 36415; 84443 ==

== ENCOUNTER → 2019-08-31 | Outpatient (CLI) | payer BC | END | disposition home or self-care (01) | LOC: LABWHC1 11:58 | PROVIDERS: ATTEND Internal Medicine Endocrinology, Diabetes & Metabolism | DX: E03.8 Other specified hypothyroidism (principal) | CPT/HCPCS: 36415; 84443 ==